=== PATIENT | male | born 1980 | race Caucasian/White ===

== ENCOUNTER 2023-02-24 20:53 | Emergency (ER) | payer OTHER ==
[~2023-02-24] VITALS: Ht 165.1 cm; Wt 77.1 kg
[~2023-02-24 20:53] MED LIST: MULVITMIND PO; OXYACE5T PO
[2023-02-24 21:06] VITALS: BP 145/99
[2023-02-24] MEDS ORDERED: METO25 PO (21:44)
[2023-02-24] MEDS ORDERED: ASPI81CH PO (21:45)
[2023-02-24] MEDS ORDERED: ATOR40TA PO (21:45)
[2023-02-24] MEDS ORDERED: Keflex500 MG PO (22:30)
== END 2023-02-24 22:37 | disposition home or self-care (01) ==
LOC: ER 20:53
DX: N49.2 Inflammatory disorders of scrotum (principal); Z88.8 Allergy status to other drugs, medicaments and biological substances; Z79.899 Other long term (current) drug therapy
CPT/HCPCS: A9270